=== PATIENT | female | born 1990 | race Caucasian/White ===

== ENCOUNTER 2020-02-20 20:27 | Emergency (ER) | payer BC ==
[~2020-02-20] VITALS: Ht 154.9 cm; Wt 59.4 kg
[2020-02-20 20:36] VITALS: Ht 154.9 cm; Wt 59.4 kg
[2020-02-20 21:31] VITALS: BP 124/68
== END 2020-02-20 21:31 | disposition home or self-care (01) ==
LOC: ED 20:27
DX: F43.9 Reaction to severe stress, unspecified (principal); R07.89 Other chest pain; Z88.0 Allergy status to penicillin